=== PATIENT | female | born 1950 | race Caucasian/White ===

== ENCOUNTER 2016-10-08 06:54 | Day surgery (SDC) | payer MEDICARE, BC ==
[2016-10-08] MEDS ORDERED: fentaNYL 100 MCG/2 ML SDV ONE (07:11)
[2016-10-08] MEDS ORDERED: Propofol 200 MG/20 ML SDV ONE (07:11)
[2016-10-08] MEDS ORDERED: Midazolam 1 MG/ML 2 ML SDV ONE (07:11)
[2016-10-08] MEDS ORDERED: Lactated Ringers 1,000 ML IV SCH (07:30)
[2016-10-08 09:38] VITALS: BP 124/93
--- NOTE | 2016-10-08 15:05 | OR ---
DATE OF PROCEDURE: 10/08/2016 PREOPERATIVE DIAGNOSES: Colon cancer screening, welcome to [employer]. POSTOPERATIVE DIAGNOSES: Right-sided diverticulosis, pedunculated polyp of rectum, welcome to [employer]. PROCEDURE: Colonoscopy to the cecum with snare cautery polypectomy. ANESTHESIA: IV anesthesia with monitored anesthesia care. INDICATIONS: This 66-year-old white female is referred for a colonoscopy as a welcome to [employer]. She thinks her last colonoscopic exam was done at age 56. It appears in the record she had one in 2011. I counseled her for a colonoscopy with possible biopsy and/or polypectomy, including risks and alternatives, and she gave her informed consent to proceed. PROCEDURE IN DETAIL: The patient was placed in a left lateral decubitus position. IV anesthesia was administered by the Anesthesia Service. Time-out was held. A rectal exam was performed, which was unremarkable. The flexible video Olympus colonoscope was introduced through her anus, up her rectum, and out her colon all way to the cecum. En route, in the right colon, we saw a single diverticulum. There was no bleeding nor inflammation associated with it. Once the cecum was reached, the scope was slowly withdrawn, examining the mucosa throughout. No other lesions were noted until we reached the rectum. Here a polyp was seen, which was almost pedunculated. A snare was passed about its base and it was elevated up away from the bowel wall and amputated with electrocautery. Hemostasis was noted with additional electrocautery. The polyp was aspirated up through the scope and captured in the polyp trap. We attempted to retroflex the scope, but it would not do this. The scope was then removed. She tolerated the procedure well. Obdulio Oconnell MD /[id number]
== END 2016-10-08 09:55 | disposition home or self-care (01) ==
LOC: JP.SDS 06:54
PROVIDERS: ATTEND Surgery
PROC: 0DBP8ZX Excision of Rectum, Via Natural or Artificial Opening Endoscopic, Diagnostic (ICD-10-PCS; principal; 2016-10-08)
DX: Z12.11 Encounter for screening for malignant neoplasm of colon (principal); D12.8 Benign neoplasm of rectum; K57.90 Diverticulosis of intestine, part unspecified, without perforation or abscess without bleeding; Z88.5 Allergy status to narcotic agent; Z88.8 Allergy status to other drugs, medicaments and biological substances
CPT/HCPCS: 45385; J2250; J2704; J3010; J7120; 88305

== ENCOUNTER 2021-04-10 06:21 | Day surgery (SDC) | payer MEDICARE ==
[2021-04-10] MEDS: Sodium Chloride 0.9% 1,000 ML IV SCH (07:30)
[2021-04-10] MEDS ORDERED: Propofol 200 MG/20 ML SDV ONE (07:35)
[2021-04-10] MEDS ORDERED: Midazolam 1 MG/ML 2 ML SDV ONE (07:35)
[2021-04-10] MEDS ORDERED: fentaNYL 100 MCG/2 ML SDV ONE (07:35)
[2021-04-10 09:23] VITALS: BP 129/85; PULSE 62
--- NOTE | 2021-04-10 11:55 | OR ---
DATE OF PROCEDURE: 04/10/2021 SURGEON: Michael Botello MD PREOPERATIVE DIAGNOSIS: Screening colonoscopy. POSTOPERATIVE DIAGNOSIS: Screening colonoscopy. PROCEDURE: Colonoscopy. FINDINGS: Normal colonoscopy. COMPLICATIONS: None. PBX INSTALLER: None. ANESTHETIC: MAC. RISKS: Risks, benefits, alternatives, and limitations including, but not limited to, infection; bleeding; perforation; false positives; false negatives were explained to the patient who wished to proceed. PROCEDURE IN DETAIL: The patient was placed in left lateral decubitus position. Digital rectal exam was performed without abnormality. Scope was introduced and advanced atraumatically to ileocecal valve. A photo was taken. The scope was brought back to the ascending, transverse, descending colon, and retroflexed. No evidence of old or new blood. No masses. No polyps. Greater than 8 minutes was spent removing the scope. The patient tolerated the procedure well. No abnormalities on retroflexion. Michael Botello MD /[id number]
== END 2021-04-10 09:37 | disposition home or self-care (01) ==
LOC: JP.SDS 06:21
PROVIDERS: ATTEND Surgery
DX: Z12.11 Encounter for screening for malignant neoplasm of colon (principal); Z88.8 Allergy status to other drugs, medicaments and biological substances
CPT/HCPCS: J2250; J2704; J3010; J7030

== ENCOUNTER 2023-07-06 16:19 | Emergency (ER) | payer MEDICARE ==
[2023-07-06] MEDS ORDERED: HYDROmorphone 0.5 MG/0.5 ML Syringe IVPUSH ONE (16:35)
[2023-07-06] MEDS ORDERED: Ondansetron 4 MG/2 ML SDV IVPUSH ONE (16:35)
[2023-07-06 16:39] LABS: BASE EXCESS VENOUS 1.9 mm/L; BICARBONATE,VENOUS 26.9 mmol/L; CARBOXYHEMOGLOBIN 2.8 % (0.0-1.6); METHEMOGLOBIN 0.9 %; O2 SATURATION VENOUS 55.8; OXYHEMOGLOBIN 53.7 %; PCO2 VENOUS 46.5 mm/Hg; PH,VENOUS 7.381 (7.350-7.450); TOTAL HEMOGLOBIN 12.4 g/dL (12.0-16.0)
[2023-07-06 16:43] LABS: BASOPHILS PERCENT AUTO 0.2 % (0.1-1.3); EOSINOPHILS ABSOLUTE AUTO 0.04 K/uL (0.00-0.40); EOSINOPHILS PERCENT AUTO 0.4 % (0.0-5.4); HEMATOCRIT 35.4 % (34.3-46.0); HEMOGLOBIN 11.9 g/dL (11.2-15.5); IMMATURE GRAN PERCENT AUTO 0.2 % (0.0-0.7); LYMPHOCYTES PERCENT AUTO 25.6 % (11.4-47.7); MEAN CORPUSCULAR HEMOGLOBIN 35.7 pg (31.6-35.5); MEAN CORPUSCULAR HGB CONC 33.6 g/dL (31.6-35.5); MEAN CORPUSCULAR VOLUME 106.3 fL (81.4-99.0); MONOCYTES PERCENT AUTO 8.9 % (3.3-12.6); NEUTROPHILS ABSOLUTE AUTO 5.82 K/uL (1.0-7.6); NEUTROPHILS PERCENT AUTO 64.7 % (40.0-78.1); PLATELET COUNT,PLT 179 K/uL (130-375); RED BLOOD CELL COUNT 3.33 M/uL (3.77-5.24)
[2023-07-06 16:44] LABS: BASOPHILS ABSOLUTE AUTO 0.02 K/uL (0.00-0.10); IMMATURE GRAN ABSOLUTE AUTO 0.02 K/uL (0.00-0.23); PO2 VENOUS 33.1 mm/Hg
[2023-07-06] MEDS ORDERED: Sodium Chloride 0.9% 1,000 ML IV SCH (16:45)
[2023-07-06 17:06] LABS: ALANINE AMINOTRANSFERASE,ALT 25 U/L (12-78); ALBUMIN 3.3 g/dL (3.4-5.0); ALKALINE PHOSPHATASE 46 U/L (46-116); ASPARTATE AMNIOTRANSFERASE,AST 33 U/L (15-37); BILIRUBIN TOTAL 0.5 mg/dL (0.2-1.0); BLOOD UREA NITROGEN,BUN 19 mg/dL (7-18); CALCIUM 8.1 mg/dL (8.5-10.1); CARBON DIOXIDE,CO2 29 mmol/L (21-32); CHLORIDE,CL 101 mmol/L (100-108); CREATININE 1.1 mg/dL (0.6-1.0); EST CRCL DRUG DOSING (CG) 42.44 mL/min; ESTIMATED GFR 53 mL/min (>60); GLUCOSE RANDOM 121 mg/dL (74-106); POTASSIUM,K 3.4 mmol/L (3.6-5.2); PROTEIN TOTAL,TP 6.5 g/dL (6.4-8.2); SODIUM,NA 139 mmol/L (140-148)
[2023-07-06 17:07] LABS: ANION GAP 12.4 mmol/L (5.0-14.0)
[2023-07-06 17:08] LABS: TROPONIN I HIGH SENSITIVITY 2030.2 pg/mL (<=60.3)
[2023-07-06] MEDS ORDERED: Nitroglycerin 0.4 MG Tab.SL SL PRN (17:09)
[2023-07-06] MEDS ORDERED: Aspirin 81 MG Tab.Chew PO ONE (17:09)
[2023-07-06] MEDS ORDERED: Sodium Chloride 0.9% 100 ML IV SCH (17:15)
[2023-07-06] MEDS ORDERED: Iopamidol 755 Mg/ML 100 ML Bottle IV SCH (17:15)
[2023-07-06] MEDS ORDERED: Heparin Sodium 5,000 Units/ML Vial IVPUSH ONE (17:24)
[2023-07-06] MEDS ORDERED: Heparin Sodium/D5W 25,000 UNITS/500 ML BAG IV SCH (17:30)
[2023-07-06 19:58] VITALS: BP 121/84; PULSE 77
== END 2023-07-06 20:35 | disposition other institution (70) ==
LOC: JP.ED 16:19
DX: I24.1 Dressler's syndrome (principal); I48.91 Unspecified atrial fibrillation; Z79.01 Long term (current) use of anticoagulants; Z79.899 Other long term (current) drug therapy; Z88.5 Allergy status to narcotic agent
CPT/HCPCS: 36415; 71275; 80053; 82803; 83605; 84484; 85025; 85379; 85610; 93005; 93010; 96365; 96366; 96375; 99285; 99285-25; A9270-GY; J1170; J1644; J2405; J3490; J7030; Q9967